=== PATIENT | male | born 1990 | race Caucasian/White ===

== ENCOUNTER 2024-11-22 08:38 | Emergency (ER) | payer SELFPAY ==
[2024-11-22] MEDS ORDERED: Acetaminophen 500 MG TAB ONE (08:52)
[2024-11-22] MEDS ORDERED: Ibuprofen 800 MG TAB ONE (08:53)
== END 2024-11-22 11:57 | disposition home or self-care (01) ==
LOC: ERS 08:38
DX: S22.049A Unspecified fracture of fourth thoracic vertebra, initial encounter for closed fracture (principal); F17.210 Nicotine dependence, cigarettes, uncomplicated; V89.2XXA Person injured in unspecified motor-vehicle accident, traffic, initial encounter; Y92.410 Unspecified street and highway as the place of occurrence of the external cause
CPT/HCPCS: 70450; 72125; 72128